=== PATIENT | female | born 1990 | race Caucasian/White ===

== ENCOUNTER 2016-06-03 10:30 | Outpatient (CLI) | payer MEDICAID | END 2016-06-03 10:31 | disposition home or self-care (01) | DX: Z36 Encounter for antenatal screening of mother (principal) ==

== ENCOUNTER 2016-06-17 07:44 | Outpatient (CLI) | payer MEDICAID | END 2016-06-17 07:45 | disposition home or self-care (01) | DX: Z34.82 Encounter for supervision of other normal pregnancy, second trimester (principal) ==

== ENCOUNTER 2016-09-05 16:07 | Observation (INO) | payer MEDICAID | END 2016-09-05 18:50 | disposition home or self-care (01) | DX: O99.89 Other specified diseases and conditions complicating pregnancy, childbirth and the puerperium (principal); R10.11 Right upper quadrant pain; R10.811 Right upper quadrant abdominal tenderness; M54.6 Pain in thoracic spine; M62.830 Muscle spasm of back; Z3A.30 30 weeks gestation of pregnancy ==

== ENCOUNTER 2016-09-06 02:01 | Inpatient (IN) | payer MEDICAID ==
[2016-09-06] MEDS ORDERED: HYDROmorphone 1 MG/ML SYRINGE IVP STA ×4 (02:10→07:23)
[2016-09-06] MEDS ORDERED: ONDANSETRON 4 MG/2 ML VIAL IVP STA ×3 (02:10→07:11)
[2016-09-06] MEDS ORDERED: ONDANSETRON 4 MG/2 ML VIAL ONE ×3 (02:12→07:10)
[2016-09-06] MEDS ORDERED: HYDROmorphone 1 MG/ML SYRINGE ONE ×4 (02:12→07:15)
[2016-09-06] MEDS ORDERED: ACETAMINOPHEN 1,000 MG/100 ML 100 ML IV STA (04:10)
[2016-09-06] MEDS ORDERED: ACETAMINOPHEN 1,000 MG/100 ML 100 ML IV ONE (04:11)
[2016-09-06] MEDS ORDERED: SODIUM CHLORIDE 0.9% 1,000 ML IV ONE (07:35)
[2016-09-06] MEDS ORDERED: ONDANSETRON 4 MG/2 ML VIAL IVP PRN (07:57)
[2016-09-06] MEDS ORDERED: ACETAMINOPHEN 325 MG TABLET PO PRN (08:03)
[2016-09-06] MEDS ORDERED: ACETAMINOPHEN 650 MG SUPP PR PRN (08:08)
[2016-09-06] MEDS ORDERED: SODIUM CHLORIDE FLUSH 0.9% 10 ML SYRINGE IVP ONE (09:23)
[2016-09-06] MEDS: HYDROmorphone 1 MG/ML SYRINGE IVP PRN ×2 (09:28→12:17)
[2016-09-06] MEDS ORDERED: LORazepam 2 MG/ML SYRINGE IVP SCH (10:15)
[2016-09-06] MEDS: LACTATED RINGERS 1,000 ML IV SCH ×3 (10:25→23:14)
[2016-09-06] MEDS ORDERED: ALPRAZolam 0.25 MG TABLET PO SCH (10:30)
[2016-09-06] MEDS ORDERED: ONDANSETRON 4 MG/2 ML VIAL IVP ONE ×2 (10:45→14:30)
[2016-09-06] MEDS ORDERED: HYDROmorphone 1 MG/ML SYRINGE IVP PRN (12:48)
[2016-09-06] MEDS ORDERED: GI COCKTAIL 120 ML BOTTLE PO SCH (13:00)
[2016-09-06] MEDS: GI COCKTAIL 120 ML BOTTLE PO SCH ×2 (14:15→20:33)
[2016-09-06] MEDS ORDERED: ZOLPIDEM 5 MG TABLET PO PRN (18:46)
[2016-09-06] MEDS: oxyCOD/ACETAMIN 5 MG/325 MG TABLET PO PRN (20:39)
[2016-09-06] MEDS: ACETAMINOPHEN 325 MG TABLET PO PRN (22:00)
[2016-09-07] MEDS: GI COCKTAIL 120 ML BOTTLE PO SCH ×4 (03:04→21:09)
[2016-09-07] MEDS ORDERED: SODIUM CHLORIDE FLUSH 0.9% 10 ML SYRINGE IVP ONE ×3 (07:20→21:07)
[2016-09-07] MEDS: oxyCOD/ACETAMIN 5 MG/325 MG TABLET PO PRN (08:38)
[2016-09-07] MEDS: ACETAMINOPHEN 325 MG TABLET PO PRN (09:46)
[2016-09-07] MEDS ORDERED: PROMETHAZINE 25 MG SUPP PR PRN (14:30)
[2016-09-07] MEDS: URSODIOL 250 MG TABLET PO SCH ×2 (15:47→20:52)
[2016-09-07] MEDS: ACETAMINOPHEN 500 MG TABLET PO PRN (15:47)
[2016-09-07] MEDS: oxyCODONE 5 MG TABLET PO PRN (15:48)
[2016-09-08] MEDS: GI COCKTAIL 120 ML BOTTLE PO SCH ×2 (03:37→13:39)
[2016-09-08] MEDS: ACETAMINOPHEN 500 MG TABLET PO PRN ×2 (03:40→08:50)
[2016-09-08] MEDS: oxyCODONE 5 MG TABLET PO PRN ×3 (03:45→13:41)
[2016-09-08] MEDS ORDERED: FERRIC GLUCONATE 125 MG in SODIUM CHLORIDE 0.9% 100ML 100 ML IV ONE (08:57)
[2016-09-08] MEDS ORDERED: ACETAMINOPHEN 500 MG TABLET PO SCH (09:00)
[2016-09-08] MEDS: ACYCLOVIR 200 MG CAPSULE PO SCH ×2 (11:21→15:27)
[2016-09-08] MEDS: URSODIOL 250 MG TABLET PO SCH (11:23)
== END 2016-09-08 17:17 | disposition home or self-care (01) | DRG 781 ==
DX: O26.613 Liver and biliary tract disorders in pregnancy, third trimester (principal); O98.513 Other viral diseases complicating pregnancy, third trimester; Z68.41 Body mass index [BMI] 40.0-44.9, adult; K83.8 Other specified diseases of biliary tract; B02.9 Zoster without complications; E66.01 Morbid (severe) obesity due to excess calories; O99.213 Obesity complicating pregnancy, third trimester; Z3A.30 30 weeks gestation of pregnancy

== ENCOUNTER 2016-09-30 10:20 | Outpatient (CLI) | payer MEDICAID | END 2016-09-30 10:21 | disposition home or self-care (01) | DX: Z36 Encounter for antenatal screening of mother (principal) ==

== ENCOUNTER 2016-10-05 11:07 | Outpatient (CLI) | payer MEDICAID ==
[2016-10-05 12:32] VITALS: BP 120/76
--- NOTE | 2016-10-06 07:07 | HISTORY & PHYSICAL EXAMINATION ---
DATE OF ADMISSION: 10/05/2016 DIAGNOSES 1. A 35 week 6 day gestation. 2. Biliary Colic in . 3. Herpes zoster. HISTORY OF PRESENT ILLNESS: The patient is a 25-year-old 2, para 1-0-0- 1 woman at 34 weeks and 6 days gestation who has not felt her fetus move in the last 12 hours. Her course is remarkable for biliary stasis & colic in and associated pain & pruritus controlled by Actigall. She had been previously admitted for abdominal pain and consulted with by General Surgery. She reports no jaundice but continues to have pruritus, particularly at the site of her herpes zoster under her right breast. After 10 days of acyclovir, she notes a response, but continues to have a prodrome. PHYSICAL EXAMINATION VITAL SIGNS: Temperature 98.6, pulse 92, blood pressure 120/76, respirations 19 , and pulse oximetry 98. ABDOMEN: No organomegaly or tenderness noted. DERMATOLOGY: Strip of slightly erythematous skin along dermatome T10 extending from the lateral rib cage towards the sternum and as far up as under the breast. No active herpetic lesions were visualized. UTERUS: Acontractile, normal resting tone, vertex presentation. External monitor: Category 1, reactive. Baseline 150, multiple accels noted. No worrisome decels. No contractions. LABORATORY DATA: Bile acid salts drawn. ASSESSMENT: The patient is a 25-year-old mother who has been diagnosed with cholestasis & biliary colic . Currently, her icterus & pruritus has been controlled with Actigall, as has her abdominal/biliary pain. PLAN: Close monitoring with growth check at 36 weeks via ultrasound. Biweekly NSTs. The patient will be seen in the office on Thursday or . Bile Acid Salts sent JOB #: [id number] EXT JOB #:[id number] JOHNNY
== END 2016-10-05 12:55 | disposition home or self-care (01) ==
LOC: WFO 11:07 → OB 11:11 → WFO 12:55
PROVIDERS: ATTEND Obstetrics & Gynecology
DX: O36.8130 Decreased fetal movements, third trimester, not applicable or unspecified (principal); Z3A.35 35 weeks gestation of pregnancy; O26.613 Liver and biliary tract disorders in pregnancy, third trimester; K80.50 Calculus of bile duct without cholangitis or cholecystitis without obstruction; O98.513 Other viral diseases complicating pregnancy, third trimester; B02.9 Zoster without complications
CPT/HCPCS: 82542; 99213

== ENCOUNTER 2016-10-07 11:29 | Outpatient (CLI) | payer MEDICAID ==
[2016-10-07 11:43] VITALS: BP 122/81
== END 2016-10-07 12:10 | disposition home or self-care (01) ==
LOC: WFO 11:29 → OB 11:32 → WFO 12:10
PROVIDERS: ATTEND Obstetrics & Gynecology
DX: O26.613 Liver and biliary tract disorders in pregnancy, third trimester (principal); K83.1 Obstruction of bile duct; Z3A.35 35 weeks gestation of pregnancy; Z36 Encounter for antenatal screening of mother
CPT/HCPCS: 59025; 87081

== ENCOUNTER 2016-10-07 16:50 | Outpatient (CLI) | payer MEDICAID | END 2016-10-07 16:51 | disposition home or self-care (01) | LOC: LAB.R 16:50 | PROVIDERS: ATTEND Obstetrics & Gynecology | DX: Z36 Encounter for antenatal screening of mother (principal) | CPT/HCPCS: 87081 ==

== ENCOUNTER 2016-10-10 10:52 | Outpatient (CLI) | payer MEDICAID ==
[2016-10-10 11:13] VITALS: BP 117/71
== END 2016-10-10 11:55 | disposition home or self-care (01) ==
LOC: WFO 10:52 → OB 10:56 → WFO 11:55
PROVIDERS: ATTEND Obstetrics & Gynecology
DX: O26.613 Liver and biliary tract disorders in pregnancy, third trimester (principal); K83.1 Obstruction of bile duct; Z3A.35 35 weeks gestation of pregnancy
CPT/HCPCS: 59025

== ENCOUNTER 2016-11-15 12:30 | Outpatient (CLI) | payer MEDICAID ==
[2016-11-15 13:06] VITALS: BP 119/72
== END 2016-11-15 13:25 | disposition home or self-care (01) ==
LOC: WFO 12:30 → OB 12:31 → WFO 13:25
PROVIDERS: ATTEND Obstetrics & Gynecology
DX: O47.1 False labor at or after 37 completed weeks of gestation (principal); Z3A.40 40 weeks gestation of pregnancy
CPT/HCPCS: 99212

== ENCOUNTER 2016-11-15 18:54 | Inpatient (IN) | payer MEDICAID ==
[2016-11-15] MEDS ORDERED: SODIUM CHLORIDE FLUSH 0.9% 10 ML SYRINGE IVP PRN (19:38)
[2016-11-15 20:09] LABS: BASOPHILS # (AUTO) 0.1 10^3/uL (0.0-0.1); BASOPHILS % (AUTO) 1.3 %; EOSINOPHILS # (AUTO) 0.1 10^3/uL (0.0-0.7); HCT - HEMATOCRIT 34.2 % (37.0-47.0); HGB - HEMOGLOBIN 11.3 g/dL (12.0-16.0); LYMPHOCYTES # (AUTO) 1.9 10^3/uL (1.5-3.5); LYMPHOCYTES % (AUTO) 20.8 %; MEAN CORPUSCULAR HEMOGLOBIN 25.3 pg (27.0-31.0); MEAN CORPUSCULAR HGB CONC 33.1 g/dL (32.0-36.0); MEAN CORPUSCULAR VOLUME 76.2 fL (81.0-99.0); MEAN PLATELET VOLUME 9.4 fL (7.9-10.8); MONOCYTES # (AUTO) 0.5 10^3/uL (0.0-1.0); MONOCYTES % (AUTO) 5.7 %; NEUTROPHILS # (AUTO) 6.7 10^3/uL (1.5-6.6); NEUTROPHILS % (AUTO) 71.2 %; NUCLEATED RED BLOOD CELLS AUTO 0.1 /100WBC; RED BLOOD COUNT 4.49 10^6/uL (4.20-5.40); RED CELL DISTRIBUTION WIDTH 19.5 % (12.0-15.0); UNCORRECTED WHITE BLOOD COUNT 9.3 x10^3/uL; WHITE BLOOD COUNT 9.3 x10^3/uL (4.8-10.8)
[2016-11-15] MEDS: LACTATED RINGERS 1,000 ML IV SCH ×2 (20:13→23:27)
[2016-11-15] MEDS ORDERED: fent/BUPIV 2 MCG/0.125% 250 ML EP ONE (21:12)
[2016-11-15] MEDS ORDERED: ONDANSETRON 4 MG/2 ML VIAL ONE (21:23)
[2016-11-15] MEDS ORDERED: LACTATED RINGERS 500 ML IV ONE (21:31)
[2016-11-15] MEDS ORDERED: NALBUPHINE 20 MG/ML AMP IVP PRN (21:31)
[2016-11-15] MEDS ORDERED: METOCLOPRAMIDE 10 MG/2 ML VIAL IVP PRN (21:31)
[2016-11-15] MEDS ORDERED: NALOXONE 0.4 MG/ML VIAL IVP PRN (21:31)
[2016-11-15] MEDS ORDERED: diphenhydrAMINE INJ 50 MG/ML VIAL IVP PRN (21:31)
[2016-11-15] MEDS ORDERED: ePHEDrine 50 MG/ML AMP IVP PRN (21:31)
[2016-11-15] MEDS ORDERED: ONDANSETRON 4 MG/2 ML VIAL IVP PRN (21:31)
[2016-11-15] MEDS ORDERED: fent/BUPIV 2 MCG/0.125% 250 ML EP PRN (21:31)
[2016-11-15] MEDS ORDERED: ePHEDrine 50 MG/ML AMP IVP ONE (21:54)
[2016-11-15] MEDS ORDERED: PHENYLEPHRINE 50 MG/5 ML VIAL IV ONE (21:54)
[2016-11-15] MEDS ORDERED: SODIUM CHLORIDE FLUSH 0.9% 10 ML SYRINGE IVP SCH (22:00)
--- NOTE | 2016-11-15 22:08 | HISTORY & PHYSICAL EXAMINATION ---
Admit History - Instructions [place]/Slash: -Left hand click circles element as positive or present. -Right hand click slashes element as negative or not present. - Visit Reason Visit Reason: Contractions (Pt has been twice today C/O contractions at about 1700 became strong. Good FM. Denyed SROM. Blood type O+. GBS negative, Rhubella nonimmune. Early regular visits.) - : 2 Parity: 1 Premature: 0 Ectopic: 0 Care: positive: [facility] Risk/History: positive: None Complications This : positive: None Smoking Status: Never smoker - Mother's Labs Mother's Blood Type: positive: O Mother's RH: positive: Positive GBS: positive: Group B Step Negative Rubella Status: positive: Non-immune (P t pushed 17 min.) Meds/Allgy - Home Medications Home Medications: Ambulatory Orders Medication Instructions Recorded Confirmed Zex356/FA/Omega3/Dha/Fish Oil 1 tab ORAL DAILY 09/06/16 09/06/16 [ Gummies] - Allergies Allergies/Adverse Reactions: Allergies Allergy/AdvReac Type Severity Reaction Status Date / Time No Known Drug Allergies Allergy Verified 09/06/16 02:06 Physical - Abdominal Exam Vital Signs: Temp Pulse Resp BP Pulse Ox 36.8 C 90 18 93/52 L 100 11/15/16 19:15 11/15/16 19:15 11/15/16 19:15 11/15/16 19:15 11/15/16 19:15
[2016-11-15] MEDS ORDERED: LIDOCAINE 1% 50 ML MDV ONE (22:29)
[2016-11-15] MEDS ORDERED: OXYTOCIN/LACTATED RINGERS 250 ML IV ONE ×2 (22:29→22:45)
[2016-11-15] MEDS ORDERED: WITCH HAZEL/GLYCERIN 1 EACH MED..PAD TOP PRN (23:00)
[2016-11-15] MEDS ORDERED: HYDROCORTISONE/PRAMOXINE 10 GM PR PRN (23:00)
--- NOTE | 2016-11-15 23:03 | DELIVERY NOTE ---
Delivery Note - Instructions [place]/Slash: -Left hand click circles element as positive or present. -Right hand click slashes element as negative or not present. - Labor Labor: positive: Spontaneous - Delivery Method Delivery Method: positive: Spontaneous vaginal delivery - Presentation Presentation: positive: Vertex, Compound (right arm), LUIS FELIPE - right occiput anterior - Nuchal Cord Nuchal Cord: positive: None - Anesthetic Anesthetic Type: - Amniotic Fluid Description Amniotic Fluid Description: positive: Clear - Episiotomy Type Episiotomy Type: positive: None - Laceration Laceration: positive: None - Delivery Outcome Delivery Outcome: positive: Livebirth (live female 12/24) - [place] : positive: Placed in direct skin contact with mother, Suctioned [place] sex: positive: Female - Cord Cord: positive: 3 vessels - Placenta Placenta: positive: Intact, Spontaneous - Estimated Blood Loss Estimated Blood Loss (in cc): 350 - Post Delivery Events Post Delivery Events: positive: No post delivery events (see ditiction. #[id number] )
[2016-11-16] MEDS ORDERED: OXYTOCIN/LACTATED RINGERS 250 ML IV ONE (00:27)
[2016-11-16] MEDS ORDERED: ACETAMINOPHEN 325 MG TABLET PO PRN (02:08)
[2016-11-16] MEDS ORDERED: LACTATED RINGERS 1,000 ML IV SCH (03:00)
[2016-11-16] MEDS ORDERED: MEASLES,MUMPS & RUBELLA VACC 0.5 ML VIAL SUBQ ONE (04:00)
[2016-11-16] MEDS: IBUPROFEN 600 MG TABLET PO SCH ×4 (04:08→20:45)
--- NOTE | 2016-11-16 06:32 | PROVIDER PROGRESS NOTE ---
Subjective - Prog Note Date Prog Note Date: 11/16/16 Prog Note Time: 06:30 - Subjective Pt reports feeling: Improved (pain 0/10 breast feeding) Objective - Vital Signs/Intake & Output Reviewed Vital Signs: Yes Vital Signs: Vital Signs x48h Temp Pulse Resp BP 11/16/16 06:19 36 C L 87 16 121/58 L 11/16/16 02:00 36.8 C 92 18 124/57 L 11/16/16 00:30 92 18 138/83 H 11/16/16 00:15 90 18 129/61 11/16/16 00:00 90 18 126/57 L 11/15/16 23:45 37.0 C 93 18 115/80 11/15/16 23:30 89 18 119/67 Intake & Output: Intake & Output 11/13/16 11/14/16 11/15/16 11/16/16 23:59 23:59 23:59 23:59 Intake Total 1000 Output Total 650 1500 Balance -650 -500 - Objective General Appearance: positive: No acute distress, Alert Respiratory: positive: Chest non-tender, No respiratory distress, Breath sounds nml Cardiovascular: positive: Regular rate & rhythm, No murmur, No gallop Abdomen: positive: Non-tender, No organomegaly, Nml bowel sounds, No distention , Mass (u-1) Extremities: positive: Non-tender. negative: Calf tenderness, Dipesh's sign/ cords Neurologic/Psychiatric: positive: Oriented x3 - Lab Results Fish Bones: 11/15/16 20:00 Other Labs: Lab Results x24hrs 11/15/16 Range/Units 20:00 WBC 9.3 (4.8-10.8) x10^3/uL RBC 4.49 (4.20-5.40) 10^6/uL Hgb 11.3 L (12.0-16.0) g/dL Hct 34.2 L (37.0-47.0) % MCV 76.2 L (81.0-99.0) fL MCH 25.3 L (27.0-31.0) pg MCHC 33.1 (32.0-36.0) g/dL RDW 19.5 H (12.0-15.0) % Plt Count 186 (130-450) 10^3/uL MPV 9.4 (7.9-10.8) fL Neut # 6.7 H (1.5-6.6) 10^3/uL Lymph # 1.9 (1.5-3.5) 10^3/uL [place] # 0.5 (0.0-1.0) 10^3/uL Eos # 0.1 (0.0-0.7) 10^3/uL Baso # 0.1 (0.0-0.1) 10^3/uL Absolute Nucleated RBC 0.01 x10^3/uL Nucleated RBCs 0.1 /100WBC
[2016-11-16] MEDS: DOCUSATE SODIUM 100 MG CAPSULE PO SCH ×2 (09:58→20:45)
[2016-11-16] MEDS ORDERED: ACYCLOVIR 200 MG CAPSULE PO SCH (18:46)
[2016-11-16] MEDS ORDERED: FERROUS SULFATE 325 MG TABLET PO SCH (19:00)
[2016-11-16] MEDS: ACYCLOVIR 200 MG CAPSULE PO SCH (21:26)
[2016-11-17] MEDS: IBUPROFEN 600 MG TABLET PO SCH ×2 (04:35→10:35)
[2016-11-17] MEDS: ACYCLOVIR 200 MG CAPSULE PO SCH (05:41)
--- NOTE | 2016-11-17 07:43 | PROCEDURE REPORT ---
KDATE OF PROCEDURE: 11/15/2016 00:00:00 DELIVERY NOTE Patient is a 26-year-old G2, P1 female whose EDC was 11 November. Her course was unremarkable. Patient presented at roughly 2100 hours, at which time she was 5 cm, 80% effaced. Because of the strong labor contractions, an epidural was placed for analgesia. She had excellent results from this. At that point, she was noted to be 9 cm, 100% effaced, and +1. She was noted to have a bulgy bag and at 2223 hours, she was ruptured and went immediately to complete. She was allowed to labor down, and she pushed through 2 contractions. At 2236 hours, a live female 9lb 2oz with Apgars 8 and 9 was delivered over an intact perineum. She had a compound presentation with the left shoulder being anterior, the infant was right occiput anterior with the right hand presenting at the same time. Delivery was unremarkable. The infant was bulb suctioned, placed the maternal abdomen, and stimulated. Infant responded quite quickly. The cord was clamped following cessation of pulsation and then divided. Cord blood sample was obtained. Following this, the placenta was delivered at 2244 hours, inspected, and noted to be intact. Her perineum was inspected; there was no evidence of laceration, and there were no labial or clitoral lacerations noted. The estimated blood loss was roughly 350 mL. She recommended Pitocin following delivery. Patient and baby tolerated delivery well. JOB #: [id number] EXT JOB #:[id number] JOHNNY
[2016-11-17] MEDS ORDERED: MEASLES,MUMPS & RUBELLA VACC 0.5 ML VIAL SUBQ ONE (10:00)
[2016-11-17] MEDS: DOCUSATE SODIUM 100 MG CAPSULE PO SCH (10:35)
[2016-11-17 11:52] VITALS: BP 120/72
--- NOTE | 2016-11-17 11:55 | Labor Flowsheet ---
Labor Flowsheet Datetime Report Generated by CPN: 11/17/2016 11:55 Datetime: 11/17/2016 11:20 VITAL SIGNS NBP Sys/Casie/Mean (mmHg): 129 : 67 : 82 Pulse: 86 Datetime: 11/17/2016 05:07 Temperature (F): 96.1 Temperature (C): 35.6 Temperature (C): 35.6 Datetime: 11/16/2016 14:30 SpO2 (%): 100 Datetime: 11/15/2016 22:35 Stage of : Recovery Datetime: 11/15/2016 22:32 LaborFlag: Labor Datetime: 11/15/2016 22:02 PAIN Pain Scale: 0 Pain Relief Measures: Epidural Given Anesthesia Level Check: T4- Nipple Line Datetime: 11/15/2016 21:45 UTERINE ACTIVITY Monitor Mode: External Frequency (min): 2-4 Quality: Moderate Duration (sec): 60-90 Pattern: Normal: <= 5 Contractions in 10 Minutes Resting Tone (Palpate): Relaxed Contraction Comments: epidural infusing ASSESSMENT A Monitor Mode: External US FHR Baseline Rate : 130 FHR Baseline Changes: No Baseline Change Variability: Marked >25 bpm Accelerations: 15X15 Decelerations: None Category: Category I Datetime: 11/15/2016 21:40 Provider Reviewed Strip: Yes COMMUNICATION Communication: Provider at Bedside Communication Comments: md in to see pt. Datetime: 11/15/2016 21:15 Pain Presence: Intermittent Pain Type: Contraction Pain Location: Abdomen; Perineum Pain Goal: 0 Pain Coping: Talking Through Contractions Datetime: 11/15/2016 21:12 PATIENT CARE Patient Position/Activity: Low Fowlers Datetime: 11/15/2016 21:11 Epidural Procedure: Cath Placed; Test Dose Datetime: 11/15/2016 20:48 PROCEDURE TIME OUT Procedure Verify: Correct Patient Identity; Accurate Procedure Consent Form ANESTHESIA Anesthesia Plans: Local Datetime: 11/15/2016 20:41 I/O Interventions: Up to BR Patient Care Comments: unable to void Datetime: 11/15/2016 20:24 Anesthesia Comments: Dr. Smallwood notified of epidural request
== END 2016-11-17 11:45 | disposition home or self-care (01) | DRG 775 ==
LOC: WFO 18:54 → OB 18:55 → WFO 19:37 → OB 19:39
PROVIDERS: ADMIT Obstetrics & Gynecology; ATTEND Obstetrics & Gynecology
PROC: 10E0XZZ Delivery of Products of Conception, External Approach (ICD-10-PCS; principal; 2016-11-15)
DX: O32.6XX0 Maternal care for compound presentation, not applicable or unspecified (principal); Z3A.40 40 weeks gestation of pregnancy; Z37.0 Single live birth
CPT/HCPCS: 36415; 85025; 99212; 99213

== ENCOUNTER 2017-07-08 13:35 | Emergency (ER) | payer MEDICAID ==
[2017-07-08 14:11] LABS: BASOPHILS % (AUTO) 0.7 %; EOSINOPHILS # (AUTO) 0.2 10^3/uL (0.0-0.7); EOSINOPHILS % (AUTO) 3.6 %; HGB - HEMOGLOBIN 13.6 g/dL (12.0-16.0); LYMPHOCYTES # (AUTO) 2.2 10^3/uL (1.5-3.5); MEAN CORPUSCULAR HEMOGLOBIN 27.2 pg (27.0-31.0); MEAN CORPUSCULAR HGB CONC 34.2 g/dL (32.0-36.0); MEAN CORPUSCULAR VOLUME 79.6 fL (81.0-99.0); MEAN PLATELET VOLUME 8.9 fL (7.9-10.8); MONOCYTES # (AUTO) 0.4 10^3/uL (0.0-1.0); MONOCYTES % (AUTO) 6.1 %; NEUTROPHILS # (AUTO) 3.7 10^3/uL (1.5-6.6); NEUTROPHILS % (AUTO) 56.6 %; PLT - PLATELET COUNT 214 10^3/uL (130-450); RED BLOOD COUNT 4.98 10^6/uL (4.20-5.40); RED CELL DISTRIBUTION WIDTH 15.3 % (12.0-15.0); WHITE BLOOD COUNT 6.6 x10^3/uL (4.8-10.8)
[2017-07-08 14:48] LABS: HCG UR QUAL NEGATIVE
[2017-07-08 15:21] VITALS: BP 120/64
[2017-07-08 15:47] LABS: ALBUMIN 4.1 g/dL (3.2-5.5); ALBUMIN/GLOBULIN RATIO 1.2 (1.0-2.2); BILIRUBIN,TOTAL 0.4 mg/dL (0.2-1.0); CALCIUM 9.2 mg/dL (8.5-10.3); CREATININE 0.5 mg/dL (0.4-1.0); TOTAL PROTEIN 7.4 g/dL (6.7-8.2)
--- NOTE | 2017-07-08 15:57 | XRAY Report ---
EXAM: CHEST RADIOGRAPHY EXAM DATE: 07/08/2017 03:46 PM. CLINICAL HISTORY: Chest pain. COMPARISON: None. TECHNIQUE: 2 views. FINDINGS: Lungs/Pleura: No focal opacities evident. No pleural effusion. No pneumothorax. Normal volumes. Mediastinum: Heart and mediastinal contours are unremarkable. Other: Negative bony structures. IMPRESSION: Negative two-view chest x-ray. [facility] Referring Provider Line: [phone] SITE ID: [id number]
[2017-07-08] MEDS ORDERED: KETOROLAC 60 MG/2 ML VIAL IVP STA (16:20)
--- NOTE | 2017-07-08 16:23 | ED Physician Documentation ---
History of Present Illness - Stated complaint Stated Complaint: CHEST PX/DIFFICUTLY BREATHING - Chief complaint Chief Complaint: General - History obtained from History obtained from: Patient, Family - History of Present Illness Timing: Other (4 years) Pain level max: 3 Pain level now: 0 Improved by: nothing Worsened by: taking a deep breath - Additonal information Additional information: Patient is a 26-year-old female who presents to the emergency department complaining of "heart pain" for the past 4 years. This occurs for 1-2 days per month. She states it is worse with taking a deep breath. Has not taken anything for the pain. Seems to last for a few seconds at a time. Over the past day it has become more constant and has a dull ache to the left side of her chest. No family history of blood clots. She is on control, but does not smoke. No recent surgery. No family history of young cardiac disease. Review of Systems Ten Systems: 10 systems reviewed and negative Constitutional: denies: Fever, Chills Eyes: denies: Decreased vision Ears: denies: Ear pain Nose: denies: Rhinorrhea / runny nose, Congestion Throat: denies: Sore throat Cardiac: denies: Pedal edema, Calf pain Respiratory: denies: Dyspnea, Cough, Wheezing GI: denies: Abdominal Pain, Nausea, Vomiting, Diarrhea : denies: Dysuria, Frequency, Hesitancy, Now EGA Skin: denies: Rash Musculoskeletal: denies: Neck pain, Back pain Neurologic: denies: Headache PD PAST MEDICAL HISTORY - Past Medical History Past Medical History: Yes Cardiovascular: None Respiratory: None Neuro: None Endocrine/Autoimmune: None GI: None CONSULTING IT ARCHITECT: None : None HEENT: None Psych: None Musculoskeletal: None Derm: None - Past Surgical History Past Surgical History: No - Present Medications Home Medications: Ambulatory Orders Medication Instructions Recorded Confirmed Multivitamin [Multiple Vitamins] 1 each PO DAILY 07/08/17 07/08/17 - Allergies Allergies/Adverse Reactions: Allergies Allergy/AdvReac Type Severity Reaction Status Date / Time No Known Drug Allergies Allergy Verified 07/08/17 13:44 - Social History Does the pt smoke?: Yes Smoking Status: Former smoker Does the pt drink ETOH?: No Does the pt have substance abuse?: No - Immunizations Immunizations are current?: Yes - POLST Patient has POLST: No PD ED PE NORMAL - Vitals Vital signs reviewed: Yes - General General: Alert and oriented X 3, No acute distress, Well developed/nourished - HEENT HEENT: PERRL, Moist mucous membranes - Neck Neck: Supple, no meningeal sign - Cardiac Cardiac: RRR, No murmur, No rub, Strong equal pulses - Respiratory Respiratory: No respiratory distress, Clear bilaterally - Abdomen Abdomen: Soft, Non tender, Non distended - Derm Derm: Warm and dry, No rash - Extremities Extremities: No edema, No calf tenderness / cord - Neuro Neuro: Alert and oriented X 3 - Psych Psych: Normal mood, Normal affect Results - Vitals Vitals: Vital Signs - 24 hr 07/08/17 07/08/17 13:39 15:21 Temperature 36.8 C Heart Rate 72 70 Respiratory 20 18 Rate Blood Pressure 148/106 H 120/64 O2 Saturation 99 99 Oxygen O2 Source Room air - EKG (time done) 1346 Rate: Rate (enter#) (77) Rhythm: NSR [place]: Normal Intervals: Normal SC QRS: Normal Ischemia: Normal ST segments - Labs Labs: Laboratory Tests 07/08/17 07/08/17 07/08/17 14:00 14:00 14:00 WBC 6.6 RBC 4.98 Hgb 13.6 Hct 39.6 MCV 79.6 L MCH 27.2 MCHC 34.2 RDW 15.3 H Plt Count 214 MPV 8.9 Neut # 3.7 Lymph # 2.2 [place] # 0.4 Eos # 0.2 Baso # 0.0 Absolute Nucleated RBC 0.00 Nucleated RBC % 0.0 D-Dimer Sodium 137 Potassium 3.8 Chloride 102 Carbon Dioxide 26 Anion Gap 9.0 BUN 11 Creatinine 0.5 Estimated GFR (MDRD) 152 Glucose 95 Calcium 9.2 Total Bilirubin 0.4 AST 20 ALT 17 Alkaline Phosphatase 55 Troponin I < 0.04 Total Protein 7.4 Albumin 4.1 Globulin 3.3 Albumin/Globulin Ratio 1.2 Lipase 15 L Ur Specific [place] Urine HCG, Qual 07/08/17 07/08/17 14:00 Unknown WBC RBC Hgb Hct MCV MCH MCHC RDW Plt Count MPV Neut # Lymph # [place] # Eos # Baso # Absolute Nucleated RBC Nucleated RBC % D-Dimer 212.7 Sodium Potassium Chloride Carbon Dioxide Anion Gap BUN Creatinine Estimated GFR (MDRD) Glucose Calcium Total Bilirubin AST ALT Alkaline Phosphatase Troponin I Total Protein Albumin Globulin Albumin/Globulin Ratio Lipase Ur Specific [place] 1.015 Urine HCG, Qual NEGATIVE - Rads (name of study) cxr Radiology: Prelim report reviewed, EMP read contemporaneously, See rad report ( normal) PD MEDICAL DECISION MAKING - ED course Complexity details: reviewed results, re-evaluated patient, considered differential, d/w patient, d/w family ED course: Patient is a 26-year-old female who presents to the emergency department with atypical chest pain. Unclear etiology. Negative d-dimer. Normal troponin. Normal EKG. Her symptoms did not recur in the emergency department and there were no changes on telemetry. No evidence of arrhythmia. We will have her follow-up with her doctor for further evaluation and care. Patient counseled regarding signs and symptoms for which I believe and urgent re-evaluation would be necessary. Patient with good understanding of and agreement to plan and is comfortable going home at this time This document was made in part using voice recognition software. While efforts are made to proofread this document, sound alike and grammatical errors may occur. Departure - Departure Disposition: 01 Home, Self Care Clinical Impression: Chest pain Qualifiers: Chest pain type: unspecified Qualified Code(s): R07.9 - Chest pain, unspecified Condition: Good Instructions: ED Chest Pain Atypical Unkn Cause Follow-Up: your,doctor in 1 week [Other] Comments: The cause of your symptoms is unclear today. Return if you worsen. Discharge Date/Time: 07/08/17 17:18
[2017-07-08] MEDS ORDERED: KETOROLAC 30 MG/ML VIAL IM STA (16:24)
== END 2017-07-08 17:18 | disposition home or self-care (01) ==
LOC: ED 13:35
DX: R07.9 Chest pain, unspecified (principal); Z87.891 Personal history of nicotine dependence
CPT/HCPCS: 36415; 71046; 80053; 81025; 83690; 84484; 85025; 85379; 93005; 96372; 99283; 99284

== ENCOUNTER 2017-10-23 12:27 | Emergency (ER) | payer MEDICAID ==
[2017-10-23 12:56] VITALS: BP 122/86
[2017-10-23] MEDS ORDERED: DEXAMETHASONE 10 MG/ML VIAL PO STA (14:11)
--- NOTE | 2017-10-23 14:17 | ED Physician Documentation ---
History of Present Illness - Stated complaint Stated Complaint: L EAR PX - Chief complaint Chief Complaint: Heent - History obtained from History obtained from: Patient - History of Present Illness Timing: How many weeks ago (2) Pain level max: 5 Pain level now: 4 Improved by: nothing Worsened by: nothing - Additonal information Additional information: Patient is a 26-year-old female who presents to the emergency department stating increasing pressure and fullness to the left ear for the past several weeks. Was started on amitriptyline by her doctor without relief. No fevers. Has had nasal congestion as well as a sore throat. Has not been taken anything for this. 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 : None HEENT: None Psych: None Musculoskeletal: None Derm: None - Past Surgical History Past Surgical History: No - Present Medications Home Medications: Ambulatory Orders Medication Instructions Recorded Confirmed Multivitamin [Multiple Vitamins] 1 each PO DAILY 07/08/17 07/08/17 Cetirizine HCl/Pseudoephedrine 1 each PO BID PRN #30 tab.er.12h 10/23/17 [Zyrtec-D Tablet] - Allergies Allergies/Adverse Reactions: Allergies Allergy/AdvReac Type Severity Reaction Status Date / Time No Known Drug Allergies Allergy Verified 10/23/17 12:56 - Social History Does the pt smoke?: Yes Smoking Status: Former smoker Does the pt drink ETOH?: No Does the pt have substance abuse?: No - Immunizations Immunizations are current?: Yes - POLST Patient has POLST: No PD ED PE NORMAL - Vitals Vital signs reviewed: Yes - General General: Alert and oriented X 3, No acute distress - HEENT HEENT: PERRL, Moist mucous membranes, Pharynx benign, Other (r TM normal. L TM serous fluid present. no infection.) - Neck Neck: Supple, no meningeal sign, No adenopathy - Cardiac Cardiac: RRR - Respiratory Respiratory: No respiratory distress, Clear bilaterally - Derm Derm: Warm and dry - Neuro Neuro: Alert and oriented X 3 - Psych Psych: Normal mood, Normal affect Results - Vitals Vitals: Vital Signs - 24 hr 10/23/17 12:53 Temperature 36.2 C L Heart Rate 64 Respiratory 18 Rate Blood Pressure 122/86 H O2 Saturation 100 Oxygen O2 Source Room air PD MEDICAL DECISION MAKING - ED course Complexity details: considered differential, d/w patient ED course: Patient is a 26-year-old female with a left acute serous otitis media. No evidence of infection. Given dexamethasone will place on decongestants and antihistamines. She is well-appearing, nontoxic. Afebrile. No mastoiditis. No otitis externa. No streptococcal pharyngitis, peritonsillar or retropharyngeal abscess. Patient counseled regarding signs and symptoms for which I believe and urgent re-evaluation would be necessary. Patient with good understanding of and agreement to plan and is comfortable going home at this time This document was made in part using voice recognition software. While efforts are made to proofread this document, sound alike and grammatical errors may occur. - Sepsis Event Vital Signs: Vital Signs - 24 hr 10/23/17 12:53 Temperature 36.2 C L Heart Rate 64 Respiratory 18 Rate Blood Pressure 122/86 H O2 Saturation 100 Oxygen O2 Source Room air Departure - Departure Disposition: 01 Home, Self Care Clinical Impression: Serous otitis media Qualifiers: Chronicity: acute Laterality: left Recurrence: not specified as recurrent Qualified Code(s): H65.02 - Acute serous otitis media, left ear Condition: Good Instructions: ED Otitis Media Serous Adult Follow-Up: your,doctor in 1 week [Other] Prescriptions: Cetirizine HCl/Pseudoephedrine [Zyrtec-D Tablet] 1 each PO BID PRN #30 tab.er.12h PRN Reason: Nasal Congestion Comments: Return if you worsen. This should improve over the next few days to a week. Discharge Date/Time: 10/23/17 14:34
== END 2017-10-23 14:34 | disposition home or self-care (01) ==
LOC: ED 12:27
DX: H65.02 Acute serous otitis media, left ear (principal); Z87.891 Personal history of nicotine dependence
CPT/HCPCS: 99283

== ENCOUNTER 2018-05-31 13:48 | Emergency (ER) | payer MEDICAID ==
[2018-05-31 14:31] LABS: BILIRUBIN,URINE NEGATIVE (NEGATIVE); GLUCOSE, URINE (UA) NEGATIVE (NEGATIVE); KETONES,URINE (UA) NEGATIVE (NEGATIVE); LEUKOCYTE ESTERASE, URINE NEGATIVE (NEGATIVE); NITRITE,URINE NEGATIVE (NEGATIVE); OCCULT BLOOD,URINE NEGATIVE (NEGATIVE); PROTEIN,URINE NEGATIVE (NEGATIVE); UROBILINOGEN,URINE 0.2 (NORMAL) E.U./dL (NORMAL)
[2018-05-31 14:32] LABS: CLARITY,URINE CLEAR (CLEAR)
[2018-05-31 14:33] LABS: HCG UR QUAL NEGATIVE
[2018-05-31 14:44] LABS: BASOPHILS # (AUTO) 0.1 10^3/uL (0.0-0.1); BASOPHILS % (AUTO) 0.7 %; EOSINOPHILS # (AUTO) 0.2 10^3/uL (0.0-0.7); EOSINOPHILS % (AUTO) 2.2 %; HGB - HEMOGLOBIN 13.9 g/dL (12.0-16.0); MEAN CORPUSCULAR HEMOGLOBIN 28.3 pg (27.0-31.0); MEAN CORPUSCULAR HGB CONC 34.1 g/dL (32.0-36.0); MEAN CORPUSCULAR VOLUME 83.1 fL (81.0-99.0); MEAN PLATELET VOLUME 9.4 fL (7.9-10.8); MONOCYTES # (AUTO) 0.4 10^3/uL (0.0-1.0); MONOCYTES % (AUTO) 5.5 %; NEUTROPHILS # (AUTO) 4.3 10^3/uL (1.5-6.6); NEUTROPHILS % (AUTO) 62.6 %; PLT - PLATELET COUNT 238 10^3/uL (130-450); RED BLOOD COUNT 4.89 10^6/uL (4.20-5.40); RED CELL DISTRIBUTION WIDTH 14.9 % (12.0-15.0); WHITE BLOOD COUNT 6.9 x10^3/uL (4.8-10.8)
[2018-05-31 14:55] LABS: ALBUMIN 4.6 g/dL (3.2-5.5); ALBUMIN/GLOBULIN RATIO 1.3 (1.0-2.2); BILIRUBIN,TOTAL 0.4 mg/dL (0.2-1.0); CALCIUM 9.1 mg/dL (8.5-10.3); CREATININE 0.6 mg/dL (0.4-1.0); TOTAL PROTEIN 8.1 g/dL (6.7-8.2)
[2018-05-31] MEDS ORDERED: SODIUM CHLORIDE 0.9% 1,000 ML IV ONE (19:17)
[2018-05-31] MEDS ORDERED: ONDANSETRON 4 MG/2 ML VIAL IVP STA (19:17)
[2018-05-31] MEDS ORDERED: IOVERSOL 320 100 ML VIAL IVP ONE ×2 (20:04→20:41)
[2018-05-31] MEDS ORDERED: ACETAMINOPHEN 500 MG TABLET PO STA (20:43)
[2018-05-31] MEDS ORDERED: METOCLOPRAMIDE 10 MG/2 ML VIAL IVP STA (20:43)
--- NOTE | 2018-05-31 21:07 | CT Report ---
Reason: Abd pain, vomiting Procedure Date: 05/31/2018 Accession Number: [id number] / [id number] Procedure: CT - Abdomen/Pelvis W/ CPT Code: FULL RESULT: EXAM: CT ABDOMEN AND PELVIS EXAM DATE: 05/31/2018 08:38 PM. CLINICAL HISTORY: Abd pain, vomiting. COMPARISONS: ABDOMEN/PELVIS W/O 09/06/2016 9:14 AM. TECHNIQUE: Routine helical CT imaging was performed through the abdomen and pelvis. IV contrast: 90 ML OPTIRAY 320. Enteric contrast: No. Reconstructions: Coronal and sagittal. In accordance with CT protocol optimization, one or more of the following dose reduction techniques were utilized for this exam: automated exposure control, adjustment of mA and/or KV based on patient size, or use of iterative reconstructive technique. FINDINGS: Lung Bases: Unremarkable. Liver: Normal. No masses. Gallbladder/Bile Ducts: Unremarkable. Spleen: Normal. Pancreas: Normal. Adrenal Glands: Normal. Kidneys: Normal. No masses or hydronephrosis. Peritoneal Cavity/Bowel: Normal. No free fluid, free air or adenopathy. No masses or acute inflammatory process. The appendix is well visualized and normal. Pelvic Organs: Urinary bladder is unremarkable. Apparent soft tissue fullness in the region of the cervix; consider correlation with pelvic ultrasound. IUD is present in the uterus. Vasculature: No aneurysms or other significant abnormality. Bones: No significant abnormality. Other: Small fat-containing umbilical hernia. IMPRESSION: 1. No convincing acute abdominopelvic findings. 2. Apparent soft tissue fullness in the region of the cervix; consider correlation with pelvic ultrasound. 3. IUD is present. 4. Other findings as noted above. [facility]
[2018-05-31 22:00] VITALS: BP 136/72
--- NOTE | 2018-05-31 23:05 | ED Physician Documentation ---
PD HPI NVD - Stated complaint Stated Complaint: VOMITING - Chief complaint Chief Complaint: Abd Pain - History obtained from History obtained from: Patient - History of Present Illness Timing - onset: How many months ago (6) Timing - duration: Months Timing - details: Gradual onset Pain level max: 3 Pain level now: 3 Severity Comments: mild Associated symptoms: Abdominal pain Contributing factors: No: Sick contact, Bad food, Travel Improved by: No: Eating, Laying still, Vomiting Worsened by: Eating Similar symptoms before: No diagnosis Review of Systems Ten Systems: 10 systems reviewed and negative Constitutional: reports: Reviewed and negative Eyes: reports: Reviewed and negative Ears: reports: Reviewed and negative Nose: reports: Reviewed and negative Throat: reports: Reviewed and negative Cardiac: reports: Reviewed and negative Respiratory: reports: Reviewed and negative GI: reports: Reviewed and negative : reports: Reviewed and negative Skin: reports: Reviewed and negative Musculoskeletal: reports: Reviewed and negative Neurologic: reports: Reviewed and negative Psychiatric: reports: Reviewed and negative Endocrine: reports: Reviewed and negative Immunocompromised: reports: Reviewed and negative PD PAST MEDICAL HISTORY - Past Medical History Cardiovascular: None Respiratory: None Neuro: Headaches Endocrine/Autoimmune: None GI: None DENTAL PROSTHETIST: None : None HEENT: None Psych: None Musculoskeletal: None Derm: None - Past Surgical History Past Surgical History: No Other past surgical history: Reviewed and not relevant - Present Medications Home Medications: Ambulatory Orders Medication Instructions Recorded Confirmed Famotidine [Pepcid AC] 1 tab PO DAILY 05/31/18 05/31/18 Sucralfate 1 gm PO QID 05/31/18 05/31/18 - Allergies Allergies/Adverse Reactions: Allergies Allergy/AdvReac Type Severity Reaction Status Date / Time nitrous oxide Allergy Unknown Verified 05/31/18 14:09 - Living Situation Living Situation: reports: Alone Living Arrangement: reports: At home - Social History Does the pt smoke?: Yes Smoking Status: Current every day smoker Does the pt drink ETOH?: No Does the pt have substance abuse?: Yes Substance Use and Type: Marijuana - Family History Family history: reports: Other (Reviewed and not relevant) - Immunizations Immunizations are current?: Yes - POLST Patient has POLST: No PD ED PE NORMAL - Vitals Vital signs reviewed: Yes - General General: Alert and oriented X 3, No acute distress - HEENT HEENT: PERRL - Neck Neck: Supple, no meningeal sign - Cardiac Cardiac: RRR, No murmur - Respiratory Respiratory: Clear bilaterally - Abdomen Abdomen: Normal bowel sounds, Soft, Non tender, Non distended - Derm Derm: Warm and dry - Extremities Extremities: No deformity - Neuro Neuro: Alert and oriented X 3 - Psych Psych: Normal mood, Normal affect Results - Vitals Vitals: Vital Signs - 24 hr 05/31/18 05/31/18 05/31/18 14:04 17:13 19:13 Temperature 36 C L 36.2 C L Heart Rate 64 75 56 L Respiratory 16 17 18 Rate Blood Pressure 145/80 H 135/77 H 131/72 H O2 Saturation 100 100 100 05/31/18 05/31/18 05/31/18 19:56 20:32 21:08 Temperature 36.1 C L 36.5 C Heart Rate 56 L 64 67 Respiratory 18 16 16 Rate Blood Pressure 149/76 H 134/72 H 136/72 H O2 Saturation 98 100 100 Oxygen O2 Source Room air - Labs Labs: Laboratory Tests 05/31/18 05/31/18 05/31/18 14:23 14:23 14:39 WBC 6.9 RBC 4.89 Hgb 13.9 Hct 40.7 MCV 83.1 MCH 28.3 MCHC 34.1 RDW 14.9 Plt Count 238 MPV 9.4 Neut # (Auto) 4.3 Lymph # (Auto) 2.0 [place] # (Auto) 0.4 Eos # (Auto) 0.2 Baso # (Auto) 0.1 Absolute Nucleated RBC 0.01 Nucleated RBC % 0.1 Sodium Potassium Chloride Carbon Dioxide Anion Gap BUN Creatinine Estimated GFR (MDRD) Glucose Calcium Total Bilirubin AST ALT Alkaline Phosphatase Total Protein Albumin Globulin Albumin/Globulin Ratio Lipase Urine Color YELLOW Urine Clarity CLEAR Urine pH 6.0 Ur Specific [place] 1.010 1.010 Urine Protein NEGATIVE Urine Glucose (UA) NEGATIVE Urine Ketones NEGATIVE Urine Occult Blood NEGATIVE Urine Nitrite NEGATIVE Urine Bilirubin NEGATIVE Urine Urobilinogen 0.2 (NORMAL) Ur Leukocyte Esterase NEGATIVE Ur Microscopic Review NOT INDICATED Urine Culture Comments NOT INDICATED Urine HCG, Qual NEGATIVE 05/31/18 14:39 WBC RBC Hgb Hct MCV MCH MCHC RDW Plt Count MPV Neut # (Auto) Lymph # (Auto) [place] # (Auto) Eos # (Auto) Baso # (Auto) Absolute Nucleated RBC Nucleated RBC % Sodium 136 Potassium 3.6 Chloride 105 Carbon Dioxide 24 Anion Gap 7.0 BUN 7 Creatinine 0.6 Estimated GFR (MDRD) 122 Glucose 93 Calcium 9.1 Total Bilirubin 0.4 AST 24 ALT 20 Alkaline Phosphatase 55 Total Protein 8.1 Albumin 4.6 Globulin 3.5 Albumin/Globulin Ratio 1.3 Lipase 25 Urine Color Urine Clarity Urine pH Ur Specific [place] Urine Protein Urine Glucose (UA) Urine Ketones Urine Occult Blood Urine Nitrite Urine Bilirubin Urine Urobilinogen Ur Leukocyte Esterase Ur Microscopic Review Urine Culture Comments Urine HCG, Qual PD MEDICAL DECISION MAKING - ED course ED course: 27-year-old female with vomiting. Patient left AGAINST MEDICAL ADVICE prior to CT scan results returning. As patient was walking out CT scan results returned and they were shared with patient. Patient encouraged to follow-up with primary care provider regarding referral to gastroenterology. Departure - Departure Disposition: 07 Against Medical Advice Clinical Impression: Vomiting Qualifiers: Vomiting type: unspecified Vomiting Intractability: non-intractable Nausea presence: with nausea Qualified Code(s): R11.2 - Nausea with vomiting, unspecified Condition: Serious Discharge Date/Time: 05/31/18 21:08
== END 2018-05-31 21:08 | disposition left against medical advice (07) ==
LOC: ED 13:48
DX: R11.2 Nausea with vomiting, unspecified (principal); F17.200 Nicotine dependence, unspecified, uncomplicated; Z53.21 Procedure and treatment not carried out due to patient leaving prior to being seen by health care provider
CPT/HCPCS: 36415; 74177; 80053; 81003; 81025; 83690; 85025; 96361; 96374; 96375; 99283; 99284; A9270; J2765; Q9967; 81001; 87086

== ENCOUNTER 2018-09-27 11:01 | Day surgery (SDC) | payer OTHER ==
[2018-09-27] MEDS ORDERED: LACTATED RINGERS 1,000 ML IV ONE (11:15)
[2018-09-27] MEDS ORDERED: LIDO GARGLE 30 ML BOTTLE ONE (12:38)
[2018-09-27] MEDS ORDERED: MIDAZOLAM 2 MG/2 ML VIAL IVP ONE (12:43)
[2018-09-27] MEDS ORDERED: fentaNYL 100 MCG/2 ML VIAL IVP ONE (12:43)
[2018-09-27] MEDS ORDERED: LIDO GARGLE 30 ML BOTTLE PO ONE (12:56)
[2018-09-27] MEDS ORDERED: BENZOCAINE/TETRACAINE/BUTAMBEN 20 GM MM ONE (12:57)
[2018-09-27 13:54] VITALS: BP 130/60
== END 2018-09-27 11:02 | disposition home or self-care (01) ==
LOC: SDS 11:01
PROVIDERS: ATTEND Surgery
PROC: 0DB48ZX Excision of Esophagogastric Junction, Via Natural or Artificial Opening Endoscopic, Diagnostic (ICD-10-PCS; principal; 2018-09-27 07:30)
DX: K31.89 Other diseases of stomach and duodenum (principal); K92.0 Hematemesis; R13.10 Dysphagia, unspecified; K21.0 Gastro-esophageal reflux disease with esophagitis; E66.01 Morbid (severe) obesity due to excess calories; F41.9 Anxiety disorder, unspecified; Z83.79 Family history of other diseases of the digestive system; Z79.899 Other long term (current) drug therapy; Z87.891 Personal history of nicotine dependence; Z68.38 Body mass index [BMI] 38.0-38.9, adult
CPT/HCPCS: 43239; 87081; A9270; J7120

== ENCOUNTER 2019-05-30 10:22 | Outpatient (CLI) | payer OTHER ==
[2019-05-30 12:27] LABS: BASOPHILS % (AUTO) 0.7 %; EOSINOPHILS # (AUTO) 0.4 10^3/uL (0.0-0.7); EOSINOPHILS % (AUTO) 6.2 %; HGB - HEMOGLOBIN 14.2 g/dL (12.0-16.0); LYMPHOCYTES # (AUTO) 1.3 10^3/uL (1.5-3.5); LYMPHOCYTES % (AUTO) 23.2 %; MEAN CORPUSCULAR HEMOGLOBIN 28.9 pg (27.0-31.0); MEAN CORPUSCULAR HGB CONC 32.8 g/dL (32.0-36.0); MEAN PLATELET VOLUME 12.4 fL (7.9-10.8); MONOCYTES # (AUTO) 0.3 10^3/uL (0.0-1.0); MONOCYTES % (AUTO) 5.2 %; NEUTROPHILS # (AUTO) 3.6 10^3/uL (1.5-6.6); NEUTROPHILS % (AUTO) 64.3 %; PLT - PLATELET COUNT 225 10^3/uL (130-450); RED BLOOD COUNT 4.92 10^6/uL (4.20-5.40); RED CELL DISTRIBUTION WIDTH 13.7 % (12.0-15.0); WHITE BLOOD COUNT 5.6 x10^3/uL (4.8-10.8)
[2019-05-30 12:48] LABS: CALCIUM 9.1 mg/dL (8.5-10.3); CREATININE 0.7 mg/dL (0.4-1.0)
== END 2019-05-30 23:59 | disposition home or self-care (01) ==
LOC: LAB.N 10:22
PROVIDERS: ATTEND Physician Assistant Medical
DX: R19.7 Diarrhea, unspecified (principal)
CPT/HCPCS: 36415; 80048; 85025

== ENCOUNTER → 2019-06-02 | Outpatient (CLI) | payer OTHER | LOC: LAB.R 09:00 | PROVIDERS: ATTEND Physician Assistant Medical | DX: R19.7 Diarrhea, unspecified (principal) | CPT/HCPCS: 83630 ==

== ENCOUNTER 2019-06-07 07:00 | Outpatient (CLI) | payer OTHER | END 2019-06-07 23:59 | disposition home or self-care (01) | LOC: LAB.R 07:00 | PROVIDERS: ATTEND Physician Assistant Medical | DX: R19.7 Diarrhea, unspecified (principal) | CPT/HCPCS: 83630; 87045; 87046; 87338; 87493 ==